=== PATIENT | male | born 1950 | race Caucasian/White ===

== ENCOUNTER 2016-08-23 08:59 | Inpatient (IN) | payer MEDICARE, OTHER ==
[~2016-08-23] VITALS: Ht 193 cm; Wt 112.9 kg
[2016-08-23 11:05] LABS: HEMOGLOBIN 12.6 gm/dl (14.0-17.5); RED BLOOD COUNT 4.98 M/UL (4.20-5.50); WHITE BLOOD COUNT 19.5 K/UL (4.5-11.0)
[2016-08-23] MEDS ORDERED: NATEGLINIDE120 MG PO (21:46)
[2016-08-23] MEDS ORDERED: SYNTHROID88 MCG PO (21:46)
[2016-08-23] MEDS ORDERED: NORVASC5 MG PO (21:54)
[2016-08-23] MEDS ORDERED: ZANTAC150 MG PO (21:54)
[2016-08-23] MEDS ORDERED: PLAVIX75 MG PO (21:55)
[2016-08-23] MEDS ORDERED: TOPROL XL25 MG PO (21:55)
[2016-08-23] MEDS ORDERED: NEURONTIN100 MG PO (21:56)
[2016-08-23] MEDS ORDERED: PRAVACHOL20 MG PO (21:56)
[2016-08-23] MEDS ORDERED: FENOFIBRATE160 MG PO (21:57)
[2016-08-23] MEDS ORDERED: LANTUS100 UNIT/1 SC (21:57)
[2016-08-23] MEDS ORDERED: ASPIRIN 325MG325 MG PO (21:58)
[2016-08-23] MEDS ORDERED: JANUVIA 100 MG100 MG PO (21:58)
[2016-08-23] MEDS ORDERED: NATURAL LAXATIV25 MG PO (21:59)
[2016-08-24 05:57] LABS: HEMOGLOBIN 11.7 gm/dl (14.0-17.5); RED BLOOD COUNT 4.68 M/UL (4.20-5.50)
[2016-08-25 05:04] LABS: RED BLOOD COUNT 4.38 M/UL (4.20-5.50); WHITE BLOOD COUNT 15.1 K/UL (4.5-11.0)
[2016-08-26 06:06] LABS: HEMOGLOBIN 10.7 gm/dl (14.0-17.5); RED BLOOD COUNT 4.28 M/UL (4.20-5.50); WHITE BLOOD COUNT 13.9 K/UL (4.5-11.0)
[2016-08-27 04:52] LABS: HEMOGLOBIN 11.4 gm/dl (14.0-17.5); RED BLOOD COUNT 4.59 M/UL (4.20-5.50); WHITE BLOOD COUNT 12.9 K/UL (4.5-11.0)
[2016-08-28 06:05] LABS: RED BLOOD COUNT 4.46 M/UL (4.20-5.50); WHITE BLOOD COUNT 14.7 K/UL (4.5-11.0)
[2016-08-29 03:58] LABS: HEMOGLOBIN 10.9 gm/dl (14.0-17.5); RED BLOOD COUNT 4.38 M/UL (4.20-5.50); WHITE BLOOD COUNT 16.6 K/UL (4.5-11.0)
[2016-08-30] MEDS ORDERED: LEVAQUIN750 MG PO (15:37)
[2016-08-30] MEDS ORDERED: PROVENTIL HFA 61 INH INH (15:40)
[2016-08-30] MEDS ORDERED: ANORO ELLIPTA1 EACH INH (15:45)
[2016-08-30] MEDS ORDERED: PREDNISONE10 M1 PO (15:55)
== END 2016-08-30 16:35 | disposition home or self-care (01) | DRG 871 ==
LOC: ER1 08:59 → PROG CARE 12:46 → ZEROF 12:46 → PROG CARE 21:00
PROVIDERS: Internal Medicine; Internal Medicine Critical Care Medicine; Specialist/Technologist Athletic Trainer; ADMIT Internal Medicine
DX: A41.9 Sepsis, unspecified organism (principal); J18.9 Pneumonia, unspecified organism; J96.01 Acute respiratory failure with hypoxia; J96.02 Acute respiratory failure with hypercapnia; G93.40 Encephalopathy, unspecified; N17.9 Acute kidney failure, unspecified; I25.110 Atherosclerotic heart disease of native coronary artery with unstable angina pectoris; J44.0 Chronic obstructive pulmonary disease with (acute) lower respiratory infection; J81.1 Chronic pulmonary edema; E11.22 Type 2 diabetes mellitus with diabetic chronic kidney disease; I25.10 Atherosclerotic heart disease of native coronary artery without angina pectoris; E78.5 Hyperlipidemia, unspecified; E03.9 Hypothyroidism, unspecified; Z87.891 Personal history of nicotine dependence; R65.20 Severe sepsis without septic shock; R59.0 Localized enlarged lymph nodes; N18.3 Chronic kidney disease, stage 3 (moderate); J60 Coalworker's pneumoconiosis; Z95.5 Presence of coronary angioplasty implant and graft; K59.00 Constipation, unspecified; E87.5 Hyperkalemia; G47.00 Insomnia, unspecified; G47.33 Obstructive sleep apnea (adult) (pediatric); E66.9 Obesity, unspecified; Z68.30 Body mass index [BMI] 30.0-30.9, adult; E88.09 Other disorders of plasma-protein metabolism, not elsewhere classified; D50.9 Iron deficiency anemia, unspecified; Z79.02 Long term (current) use of antithrombotics/antiplatelets; Z79.4 Long term (current) use of insulin; Z79.84 Long term (current) use of oral hypoglycemic drugs; Z79.899 Other long term (current) drug therapy; Z79.82 Long term (current) use of aspirin; I12.9 Hypertensive chronic kidney disease with stage 1 through stage 4 chronic kidney disease, or unspecified chronic kidney disease; Z82.49 Family history of ischemic heart disease and other diseases of the circulatory system
CPT/HCPCS: ECHO; 36415; 36600; 71010; 71020; 71250; 80048; 80053; 80202; 81001; 82009; 82550; 82553; 82607; 82728; 82746; 82803; 82962; 83036; 83540; 83550; 83605; 83735; 83874; 84439; 84443; 84484; 85025; 85027; 85379; 85610; 85730; 86140; 87040; 87070; 87086; 87205; 93005; 93306; 93970; 94640; 94660; 94664; 96365; 96375; 99285; J1644; J1650; J1940; J1956; J2543; J2920; J3370; J7030; J7050; J7070; Q0177

== ENCOUNTER → 2016-09-01 | Outpatient (CLI) | payer MEDICARE, OTHER ==
[~2016-09-01] MED LIST: ANORO ELLIPTA1 EACH INH; ASPIRIN 325MG325 MG PO; FENOFIBRATE160 MG PO; IPRAT-ALBUT 0.5-3 ML INH; ISOSORBIDE MONO30 MG PO; JANUVIA 100 MG100 MG PO; LANTUS100 UNIT/1 SC; LASIX40 MG PO; LEVAQUIN500 MG PO; LEVAQUIN750 MG PO; MEDROL DOSEPAK 24 MG PO; NATEGLINIDE120 MG PO; NATURAL LAXATIV25 MG PO; NEURONTIN100 MG PO; NORVASC5 MG PO; PLAVIX 75 MG TA75 MG PO; PLAVIX75 MG PO; PRAVACHOL20 MG PO; PREDNISONE10 M1 PO; PROVENTIL HFA 61 INH INH; SPIRIVA18 MCG INH; SYNTHROID88 MCG PO; TOPROL XL25 MG PO; VENTOLIN/PROVENT2 MG PO; ZANTAC150 MG PO; ZESTRIL5 MG PO
== END ==
LOC: US 07-30 14:00
DX: N18.3 Chronic kidney disease, stage 3 (moderate) (principal); N28.89 Other specified disorders of kidney and ureter; K80.20 Calculus of gallbladder without cholecystitis without obstruction

== ENCOUNTER → 2016-09-03 | Outpatient (CLI) | payer MEDICARE, OTHER ==
[2016-09-03 10:52] LABS: HEMOGLOBIN 12.6 gm/dl (14.0-17.5); RED BLOOD COUNT 5.09 M/UL (4.20-5.50); WHITE BLOOD COUNT 20.8 K/UL (4.5-11.0)
[2016-09-03 11:28] LABS: URINE TOTAL PROTEIN 30 mg/dl
== END ==
LOC: LAB 08:46
PROVIDERS: Internal Medicine Nephrology
DX: D72.829 Elevated white blood cell count, unspecified (principal); D51.8 Other vitamin B12 deficiency anemias; D50.9 Iron deficiency anemia, unspecified; E78.5 Hyperlipidemia, unspecified; N18.3 Chronic kidney disease, stage 3 (moderate)
CPT/HCPCS: 36415; 80053; 82043; 82270; 82550; 82570; 83516; 83970; 84100; 84156; 85027; 86039; 86160; 86162; 86225; 86334; 86803; 87340; 89050

== ENCOUNTER → 2016-09-30 | Outpatient (CLI) | payer MEDICARE, OTHER | LOC: HEART 5 10:07 | DX: J96.90 Respiratory failure, unspecified, unspecified whether with hypoxia or hypercapnia (principal) | CPT/HCPCS: 94060; 94729 ==

== ENCOUNTER → 2016-10-08 | Outpatient (CLI) | payer MEDICARE, OTHER | LOC: RAD 09:59 | DX: G47.34 Idiopathic sleep related nonobstructive alveolar hypoventilation (principal); J44.9 Chronic obstructive pulmonary disease, unspecified; R91.8 Other nonspecific abnormal finding of lung field | CPT/HCPCS: 36600; 71020; 82803 ==

== ENCOUNTER → 2016-10-27 | Outpatient (CLI) | payer MEDICARE, OTHER ==
[2016-10-27 10:53] LABS: HEMOGLOBIN 12.2 gm/dl (14.0-17.5); RED BLOOD COUNT 4.9 M/UL (4.20-5.50); WHITE BLOOD COUNT 9.4 K/UL (4.5-11.0)
== END ==
LOC: LAB 09:48
PROVIDERS: Internal Medicine Nephrology
DX: N18.3 Chronic kidney disease, stage 3 (moderate) (principal); D72.829 Elevated white blood cell count, unspecified
CPT/HCPCS: 36415; 80053; 85027

== ENCOUNTER → 2016-10-31 | Outpatient (CLI) | payer MEDICARE, OTHER | LOC: SLEEP 08:48 | DX: G47.33 Obstructive sleep apnea (adult) (pediatric) (principal) | CPT/HCPCS: 95810 ==

== ENCOUNTER 2017-01-16 10:07 | Inpatient (IN) | payer MEDICARE, OTHER ==
[~2017-01-16] VITALS: Ht 193 cm; Wt 109.3 kg
[~2017-01-16 10:07] MED LIST changes: -IPRAT-ALBUT 0.5-3 ML INH; -ISOSORBIDE MONO30 MG PO; -LASIX40 MG PO; -LEVAQUIN500 MG PO; -MEDROL DOSEPAK 24 MG PO; -PLAVIX 75 MG TA75 MG PO; -SPIRIVA18 MCG INH; -VENTOLIN/PROVENT2 MG PO; -ZESTRIL5 MG PO
[2017-01-16 11:25] LABS: HEMOGLOBIN 13.4 gm/dl (14.0-17.5); RED BLOOD COUNT 5.37 M/UL (4.20-5.50); WHITE BLOOD COUNT 12.6 K/UL (4.5-11.0)
[2017-01-16] MEDS ORDERED: ZESTRIL5 MG PO (20:11)
[2017-01-16] MEDS ORDERED: SPIRIVA18 MCG INH (20:13)
[2017-01-16] MEDS ORDERED: ISOSORBIDE MONO30 MG PO (20:21)
[2017-01-16] MEDS ORDERED: VENTOLIN/PROVENT2 MG PO (20:25)
[2017-01-17 03:42] LABS: HEMOGLOBIN 12.1 gm/dl (14.0-17.5); WHITE BLOOD COUNT 10.4 K/UL (4.5-11.0)
[2017-01-17 03:46] LABS: RED BLOOD COUNT 4.81 M/UL (4.20-5.50)
[2017-01-18 03:56] LABS: HEMOGLOBIN 11.4 gm/dl (14.0-17.5); RED BLOOD COUNT 4.55 M/UL (4.20-5.50)
[2017-01-18 04:22] LABS: WHITE BLOOD COUNT 15.6 K/UL (4.5-11.0)
[2017-01-19 06:24] LABS: HEMOGLOBIN 12.1 gm/dl (14.0-17.5); RED BLOOD COUNT 4.85 M/UL (4.20-5.50)
[2017-01-19] MEDS ORDERED: PLAVIX 75 MG TA75 MG PO (15:01)
[2017-01-19] MEDS ORDERED: LASIX40 MG PO (15:04)
[2017-01-19] MEDS ORDERED: LEVAQUIN500 MG PO (15:06)
[2017-01-19] MEDS ORDERED: MEDROL DOSEPAK 24 MG PO (15:07)
[2017-01-19] MEDS ORDERED: PRAVACHOL20 MG PO (15:08)
[2017-01-19] MEDS ORDERED: IPRAT-ALBUT 0.5-3 ML INH (18:15)
== END 2017-01-19 18:37 | disposition home or self-care (01) | DRG 189 ==
LOC: ER1 10:07 → CCU 14:00 → ZEROF 14:00 → CCU 20:26 → M/S 01-18 17:35
PROVIDERS: Emergency Medicine; Internal Medicine; Internal Medicine Nephrology; ADMIT Internal Medicine
PROC: 5A09457 Assistance with Respiratory Ventilation, 24-96 Consecutive Hours, Continuous Positive Airway Pressure (ICD-10-PCS; 2017-01-16)
PROC: 3E0234Z Introduction of Serum, Toxoid and Vaccine into Muscle, Percutaneous Approach (ICD-10-PCS; principal; 2017-01-19)
DX: J96.22 Acute and chronic respiratory failure with hypercapnia (principal); J18.9 Pneumonia, unspecified organism; J44.0 Chronic obstructive pulmonary disease with (acute) lower respiratory infection; J44.1 Chronic obstructive pulmonary disease with (acute) exacerbation; J90 Pleural effusion, not elsewhere classified; N17.9 Acute kidney failure, unspecified; E87.4 Mixed disorder of acid-base balance; I13.0 Hypertensive heart and chronic kidney disease with heart failure and stage 1 through stage 4 chronic kidney disease, or unspecified chronic kidney disease; I50.30 Unspecified diastolic (congestive) heart failure; J96.21 Acute and chronic respiratory failure with hypoxia; E11.22 Type 2 diabetes mellitus with diabetic chronic kidney disease; N18.3 Chronic kidney disease, stage 3 (moderate); Z23 Encounter for immunization; I25.10 Atherosclerotic heart disease of native coronary artery without angina pectoris; R91.8 Other nonspecific abnormal finding of lung field; E03.9 Hypothyroidism, unspecified; E78.5 Hyperlipidemia, unspecified; E87.5 Hyperkalemia; E11.649 Type 2 diabetes mellitus with hypoglycemia without coma; D64.9 Anemia, unspecified; R00.1 Bradycardia, unspecified; E11.65 Type 2 diabetes mellitus with hyperglycemia; G47.33 Obstructive sleep apnea (adult) (pediatric); T38.0X5A Adverse effect of glucocorticoids and synthetic analogues, initial encounter; E66.9 Obesity, unspecified; M19.90 Unspecified osteoarthritis, unspecified site; J30.9 Allergic rhinitis, unspecified; Z95.5 Presence of coronary angioplasty implant and graft; Z87.891 Personal history of nicotine dependence; Z87.01 Personal history of pneumonia (recurrent); Z99.81 Dependence on supplemental oxygen; Z68.30 Body mass index [BMI] 30.0-30.9, adult; Z79.82 Long term (current) use of aspirin; Z79.4 Long term (current) use of insulin; Z79.899 Other long term (current) drug therapy; Z88.5 Allergy status to narcotic agent; Z98.84 Bariatric surgery status; Z98.890 Other specified postprocedural states; Z83.3 Family history of diabetes mellitus; Z82.79 Family history of other congenital malformations, deformations and chromosomal abnormalities; Z82.49 Family history of ischemic heart disease and other diseases of the circulatory system; Z82.5 Family history of asthma and other chronic lower respiratory diseases; Z80.9 Family history of malignant neoplasm, unspecified
CPT/HCPCS: 36415; 36600; 71010; 71020; 71250; 80048; 80053; 81001; 82550; 82553; 82570; 82803; 82962; 83036; 83605; 83735; 83874; 83880; 84156; 84443; 84484; 85025; 85027; 87040; 87070; 87205; 87278; 87899; 93005; 94640; 94660; 94664; G0008; J1120; J1650; J1815; J1940; J1956; J2543; J2920; J2930; J3370; J7030; J7050; J7070; J7509; Q2039

== ENCOUNTER 2020-05-30 11:50 | Inpatient (IN) | payer MEDICARE, OTHER ==
[~2020-05-30] VITALS: Ht 190.5 cm; Wt 125.2 kg
[~2020-05-30 11:50] MED LIST changes: +ATORVASTATIN CA20 MG PO; +AUGMENTIN 875-1 EACH PO; +BENEFIBER1 EAC1 PO; +BUMETANIDE2 MG PO; +CATAPRES 0.1MG0.1 MG PO; +CEFUROXIME500 MG PO; +DIAMOX 250 MG250 MG PO; +ECOTRIN81 MG PO; +FLOMAX 0.4 MG0.4 MG PO; +FUROSEMIDE40 MG PO; +HYDRALAZINE HCL25 MG PO; +HYDRALAZINE HCL50 MG PO; +IMDUR ER TAB 6060 MG PO; +IPRAT-ALBUT 0.5-3 ML INH; +ISOSORBIDE MONO30 MG PO; -LANTUS100 UNIT/1 SC; +LANTUS100 UNIT/1 SQ; +LASIX 40 MG TAB40 MG PO; +LASIX20 MG PO; +LASIX40 MG PO; +LASIX80 MG PO; +LEVAQUIN500 MG PO; +LIPITOR40 MG PO; +MEDROL DOSEPAK 24 MG PO; +NEURONTIN 300300 MG PO; -NEURONTIN100 MG PO; +NORVASC10 MG PO; -NORVASC5 MG PO; +NOVOLIN 70100 UNIT/1 SQ; +PANTOPRAZOLE SO40 MG PO; +PLAVIX 75 MG TA75 MG PO; +PRILOSEC OTC20 MG PO; +SENNA8.6 MG PO; +SPIRIVA RESPIMAT4 GM INH; +STARLIX 120 MG120 MG PO; +SYNTHROID112 MCG PO; -SYNTHROID88 MCG PO; +TOPROL XL50 MG PO; +TRAMADOL HCL50 MG PO; +VENTOLIN HFA 66.7 GM INH; +XYZAL5 MG PO; +ZESTRIL5 MG PO
[2020-05-30 12:10] LABS: HEMOGLOBIN 10.8 gm/dl (14.0-17.5); RED BLOOD COUNT 4.45 M/UL (4.20-5.50); WHITE BLOOD COUNT 13.7 K/UL (4.5-11.0)
[2020-05-30 16:16] LABS: ADENOVIRUS F 40/41 Not Detected (Negative); ASTROVIRUS Not Detected (Negative); CAMPYLOBACTER Not Detected (Negative); CLOSTRIDIUM DIFFICILE TOX A/B Not Detected (Negative); CRYPTOSPORIDIUM Not Detected (Negative); E.COLI 0157 Not Detected (Negative); ENTAMOEBA HISTOLYTICA Not Detected (Negative); ENTEROAGGREGATIVE E.COLI (EAEC Not Detected (Negative); ENTEROPATHOGENIC E.COLI (EPEC) Not Detected (Negative); ENTEROTOXIGENIC E.COLI (ETEC) Not Detected (Negative); GIARDIA LAMBLIA Not Detected (Negative); NOROVIRUS GI/GII Not Detected (Negative); PLESIOMONAS SHIGELLOIDES Not Detected (Negative); ROTOVIRUS A Not Detected (Negative); SALMONELLA Not Detected (Negative); SAPOVIRUS Not Detected (Negative); SHIG/ENTEROINVAS.ECOLI (EIEC) Not Detected (Negative); SHIGA-LIK TOX.PRO.E.COLI (STEC Not Detected (Negative); VIBRIO Not Detected (Negative); VIBRIO CHOLERAE Not Detected (Negative); YERSINIA ENTEROCOLITICA Not Detected (Negative)
[2020-05-30] MEDS ORDERED: VITAMIN D325 MCG PO (17:08)
[2020-05-31 04:50] LABS: HEMOGLOBIN 10.2 gm/dl (14.0-17.5); RED BLOOD COUNT 4.24 M/UL (4.20-5.50); WHITE BLOOD COUNT 12.6 K/UL (4.5-11.0)
[2020-06-01 02:28] LABS: HEMOGLOBIN 9.8 gm/dl (14.0-17.5); RED BLOOD COUNT 4.1 M/UL (4.20-5.50); WHITE BLOOD COUNT 10.4 K/UL (4.5-11.0)
[2020-06-02] MEDS ORDERED: TOPROL XL50 MG PO (13:55)
== END 2020-06-02 18:15 | disposition home or self-care (01) | DRG 391 ==
LOC: ER1 11:50 → M/S 15:15 → CDU 15:15 → M/S 18:50
PROVIDERS: Emergency Medicine; Internal Medicine Nephrology; ADMIT Internal Medicine Infectious Disease
DX: A09 Infectious gastroenteritis and colitis, unspecified (principal); N17.0 Acute kidney failure with tubular necrosis; J96.10 Chronic respiratory failure, unspecified whether with hypoxia or hypercapnia; J96.12 Chronic respiratory failure with hypercapnia; J96.11 Chronic respiratory failure with hypoxia; E86.0 Dehydration; E11.9 Type 2 diabetes mellitus without complications; Z20.822 Contact with and (suspected) exposure to COVID-19; I25.10 Atherosclerotic heart disease of native coronary artery without angina pectoris; J44.9 Chronic obstructive pulmonary disease, unspecified; J64 Unspecified pneumoconiosis; Z99.81 Dependence on supplemental oxygen; F17.210 Nicotine dependence, cigarettes, uncomplicated; Z80.42 Family history of malignant neoplasm of prostate; Z80.9 Family history of malignant neoplasm, unspecified; Z84.89 Family history of other specified conditions; Z79.82 Long term (current) use of aspirin; Z79.4 Long term (current) use of insulin; Z95.5 Presence of coronary angioplasty implant and graft
CPT/HCPCS: 36415; 71045; 80048; 80053; 81001; 82550; 82553; 82962; 83036; 83605; 83690; 83874; 84133; 84300; 84484; 85025; 87507; 89050; 94640; 94760; 96372; 96374; 96375; 99285; J1335; J1644; J2405; J7030; P9047; U0002